=== PATIENT | male | born 1960 | race Caucasian/White ===

== ENCOUNTER 2017-09-19 14:59 | Emergency (ER) | payer MEDICAID, SELFPAY ==
[~2017-09-19] VITALS: Ht 162.6 cm; Wt 70.0 kg
[2017-09-19] MEDS ORDERED: ONDANSETRON ODT 4 MG ONE ×2 (15:38→18:26)
[2017-09-19] MEDS ORDERED: MORPHINE SULFATE 4 MG/ML, 1ML ONE ×3 (15:38→18:47)
[2017-09-19] MEDS ORDERED: MORPHINE SULFATE 4 MG/ML, 1ML IVPush ONE (16:00)
[2017-09-19] MEDS ORDERED: ONDANSETRON ODT 4 MG PO ONE ×2 (16:00→16:30)
[2017-09-19] MEDS ORDERED: BACITRACIN ZINC OINT 500U/GM, 0.9 GM ONE (16:29)
[2017-09-19] MEDS ORDERED: DIPH,PERTUSS(ACELL),TET VAC/PF 0.5 ML IM-VACC ONE ×2 (16:29→16:30)
[2017-09-19] MEDS ORDERED: SODIUM CHLORIDE FLUSH 10ML SYR IVF ONE (16:30)
[2017-09-19] MEDS: MORPHINE SULFATE 4 MG/ML, 1ML IVPush PRN ×2 (16:38→19:03)
[2017-09-19 16:39] LABS: BASOPHILS # (AUTO) 0.04 x10^3/uL (0-0.1); BASOPHILS % (AUTO) 1 % (0-1); EOSINOPHILS # (AUTO) 0.46 x10^3/uL (0-0.4); EOSINOPHILS % (AUTO) 5 % (1-7); LYMPHOCYTES # (AUTO) 1.88 x10^3/uL (1-3.4); LYMPHOCYTES % (AUTO) 22 % (22-44); MD NO; MEAN CORPUSCULAR HEMOGLOBIN 32.6 pg (27.5-34.5); MEAN CORPUSCULAR HGB CONC 34.7 g/dL (33.2-36.2); MEAN CORPUSCULAR VOLUME 94.1 fL (81-97); MONOCYTES # (AUTO) 0.55 x10^3/uL (0.2-0.8); MONOCYTES % (AUTO) 6 % (2-9); NEUTROPHILS # (AUTO) 5.66 x10^3/uL (1.8-6.8); NEUTROPHILS % (AUTO) 66 % (42-75); PLATELET COUNT 174 x10^3/uL (130-400); RED BLOOD COUNT 5.09 x10^6/uL (4.38-5.82)
[2017-09-19 16:48] LABS: ALBUMIN 3.7 g/dL (3.4-5.0); ANION GAP 9 mmol/L (5-15); CHLORIDE 109 mmol/L (98-107); CREATININE 1.08 mg/dL (0.7-1.3)
[2017-09-19 16:52] LABS: INTERNATIONAL NORMALIZED RATIO 0.97 (0.93-1.1)
[2017-09-19] MEDS ORDERED: LIDOCAINE-MPF 1%, 5ML ONE (17:01)
[2017-09-19] MEDS ORDERED: OMNIPAQUE 350 MG/ML, 100ML BOTTLE ONE (17:46)
[2017-09-19 18:46] VITALS: BP 120/94
[2017-09-19] MEDS ORDERED: MORPHINE SULFATE 4 MG/ML, 1ML IVPush PRN (19:00)
== END 2017-09-19 19:16 | disposition home or self-care (01) ==
LOC: ED 16:00
DX: S22.31XA Fracture of one rib, right side, initial encounter for closed fracture (principal); S01.81XA Laceration without foreign body of other part of head, initial encounter; S20.211A Contusion of right front wall of thorax, initial encounter; S40.011A Contusion of right shoulder, initial encounter; S50.01XA Contusion of right elbow, initial encounter; S50.11XA Contusion of right forearm, initial encounter; S60.222A Contusion of left hand, initial encounter; V29.9XXA Motorcycle rider (driver) (passenger) injured in unspecified traffic accident, initial encounter; Y93.55 Activity, bike riding; Y92.89 Other specified places as the place of occurrence of the external cause; Y99.8 Other external cause status
CPT/HCPCS: 12011; 36415; 70450; 71045; 71260; 73030; 74177; 80048; 82040; 85025; 85610; 90715; 96372; 96374; 96376; 99285; Q0162; Q9967